=== PATIENT | female | born 1960 | race Caucasian/White ===

== ENCOUNTER → 2018-02-21 | Outpatient (REF) | payer OTHER ==
[2018-02-21 13:07] LABS: C REACTIVE PROTEIN QUANTITATIV 0.41 MG/DL (0.00-0.30)
[2018-02-21 13:07] LABS: RHEUMATOID FACTOR QUANT < 10.0 IU/ML (<15.0)
[2018-02-24 00:06] LABS: CYCLIC CITRULLINATED PEPTIDE 3 units (0-19)
== END ==
LOC: M LAB REF 12:15
DX: M19.90 Unspecified osteoarthritis, unspecified site (principal)
CPT/HCPCS: 86140

== ENCOUNTER → 2018-08-29 | Outpatient (REF) | payer OTHER, SELFPAY ==
[2018-08-29 13:33] LABS: C REACTIVE PROTEIN QUANTITATIV < 0.30 MG/DL (0.00-0.30)
== END ==
LOC: M LAB REF 12:18
DX: M19.90 Unspecified osteoarthritis, unspecified site (principal)
CPT/HCPCS: 86140

== ENCOUNTER → 2019-05-16 | Outpatient (REF) | payer OTHER | LOC: M LAB REF 17:06 | PROVIDERS: ATTEND Nurse Practitioner Family | DX: L30.9 Dermatitis, unspecified (principal); L03.211 Cellulitis of face ==

== ENCOUNTER → 2019-05-17 | Outpatient (REF) | payer OTHER | LOC: M LAB REF 12:27 | PROVIDERS: ATTEND Internal Medicine | DX: M19.90 Unspecified osteoarthritis, unspecified site (principal) ==

== ENCOUNTER 2020-06-19 09:25 | Day surgery (SDC) | payer OTHER ==
[~2020-06-19] VITALS: Ht 162.6 cm; Wt 54.4 kg
[~2020-06-19 09:25] MED LIST: ACID1TAB PO; BETAPOW PO; BIOT1CAP2 PO; CO Q1CAP2 PO; FLAX1300 PO; GARL500C2 PO; LIDOCAINE 2% 100MG/5ML SDV (FOR ANES.) As Ordered ONE; MAGN400C PO; MULTTAB12 PO; VITA400C83 PO; [UNRECOGNIZED DRUG - CODE] PO; [UNRECOGNIZED DRUG - CODE] PO; [UNRECOGNIZED DRUG - OTHER] PO; propofoL 200 MG/20 ML VIAL As Ordered ONE
--- NOTE | 2020-07-30 11:31 | ROOR ---
Patient Name: Alina Mayfield Procedure Date: 06/19/2020 9:15 AM Date of : 1960 Age: 60 Room: [facility] Gender: Female Note Status: Finalized Procedure: Colonoscopy Indications: High risk colon cancer surveillance: Personal history of colonic polyps Providers: Prosper Fowler Jr, MD Referring MD: Jeanine SMITH MD Requesting Provider: Medicines: Propofol per Anesthesia Complications: No immediate complications. Procedure: Pre-Anesthesia Assessment: - Prior to the procedure, a History and Physical was performed, and patient medications and allergies were reviewed. The patient is competent. The risks and benefits of the procedure and the sedation options and risks were discussed with the patient. All questions were answered and informed consent was obtained. Patient identification and proposed procedure were verified by the physician and the nurse in the pre-procedure area and in the procedure room. Mental Status Examination: alert and oriented. Airway Examination: normal oropharyngeal airway and neck mobility. Respiratory Examination: clear to auscultation. CV Examination: normal. ASA Grade Assessment: II - A patient with mild systemic disease. After reviewing the risks and benefits, the patient was deemed in satisfactory condition to undergo the procedure. The anesthesia plan was to use moderate sedation / analgesia (conscious sedation). Immediately prior to administration of medications, the patient was re-assessed for adequacy to receive sedatives. The heart rate, respiratory rate, oxygen saturations, blood pressure, adequacy of pulmonary ventilation, and response to care were monitored throughout the procedure. The physical status of the patient was re-assessed after the procedure. The Colonoscope was introduced through the anus and advanced to the cecum, identified by appendiceal orifice and ileocecal valve. The colonoscopy was performed without difficulty. The patient tolerated the procedure well. The quality of the bowel preparation was adequate. Findings: The rectum, recto-sigmoid colon, sigmoid colon, descending colon, transverse colon, ascending colon, cecum, appendiceal orifice and ileocecal valve appeared normal. Impression: - The rectum, recto-sigmoid colon, sigmoid colon, descending colon, transverse colon, ascending colon, cecum, appendiceal orifice and ileocecal valve are normal. - No specimens collected. Recommendation: - Discharge patient to home (ambulatory). - Repeat colonoscopy in 10 years for screening purposes. Prosper Fowler MD Prosper Fowler Jr, MD 06/19/2020 11:04:01 AM Electronically signed by Prosper Fowler Jr, MD Number of Addenda: 0 Note Initiated On: 06/19/2020 9:15 AM Estimated Blood Loss: Estimated blood loss: none.
== END 2020-06-19 11:30 | disposition home or self-care (01) ==
LOC: M OPP 09:25
PROVIDERS: ATTEND Surgery
DX: Z12.11 Encounter for screening for malignant neoplasm of colon (principal); Z86.010 Personal history of colon polyps; Z91.040 Latex allergy status

== ENCOUNTER → 2021-02-02 | Outpatient (REF) | payer OTHER ==
[~2021-02-02] MED LIST changes: +ASCO500T23 PO; -LIDOCAINE 2% 100MG/5ML SDV (FOR ANES.) As Ordered ONE; -[UNRECOGNIZED DRUG - CODE] PO; -propofoL 200 MG/20 ML VIAL As Ordered ONE
== END ==
LOC: M LAB REF 21:20
PROVIDERS: ATTEND Physician Assistant Medical
DX: Z20.828 Contact with and (suspected) exposure to other viral communicable diseases (principal)

== ENCOUNTER → 2022-01-12 | Outpatient (CLI) | payer OTHER ==
[~2022-01-12] MED LIST changes: -ASCO500T23 PO; +PROHANCE 279.3MG/ML 15ML VIAL As Ordered ONE; +[UNRECOGNIZED DRUG - CODE] PO
== END ==
LOC: M RAD 12:45
PROVIDERS: ATTEND Internal Medicine
DX: Z12.39 Encounter for other screening for malignant neoplasm of breast (principal); Z80.3 Family history of malignant neoplasm of breast
CPT/HCPCS: 77049; A9576

== ENCOUNTER → 2023-02-08 | Outpatient (CLI) | payer OTHER | LOC: M RAD 12:15 | PROVIDERS: ATTEND Internal Medicine | DX: Z80.3 Family history of malignant neoplasm of breast (principal) | CPT/HCPCS: 77049; A9576 ==

== ENCOUNTER → 2024-06-15 | Outpatient (REF) | payer MEDICARE, OTHER ==
[~2024-06-15] MED LIST changes: -GARL500C2 PO; +GARL500C6 PO; -PROHANCE 279.3MG/ML 15ML VIAL As Ordered ONE
== END ==
LOC: M SFHCWAGY 10:17
PROVIDERS: ATTEND Specialist
DX: R87.612 Low grade squamous intraepithelial lesion on cytologic smear of cervix (LGSIL) (principal)

== ENCOUNTER → 2025-01-17 | Outpatient (REF) | payer BC ==
[2025-01-22 13:23] LABS: HPV APTIMA Not Detected (Not Detected)
== END ==
LOC: M SFHCWAGY 08:50
PROVIDERS: ATTEND Specialist
DX: Z12.4 Encounter for screening for malignant neoplasm of cervix (principal); Z77.9 Other contact with and (suspected) exposures hazardous to health; N87.0 Mild cervical dysplasia
CPT/HCPCS: 87624; G0123